=== PATIENT | female | born 2000 | race Two or more races ===

== ENCOUNTER 2019-05-07 19:44 | Emergency (ER) | payer MEDICAID ==
[~2019-05-07] VITALS: Ht 157.5 cm; Wt 73.9 kg
--- NOTE | 2019-05-07 21:55 | NUR ---
urine sample sent. erp at pt's bedside for eval
[2019-05-07] MEDS ORDERED: ONDANSETRON ODT 4 MG PO ONE (22:00)
[2019-05-07] MEDS ORDERED: ACETAMINOPHEN 325 MG TABLET PO ONE (22:00)
[2019-05-07] MEDS ORDERED: ACETAMINOPHEN 325 MG TABLET ONE (22:04)
[2019-05-07] MEDS ORDERED: ONDANSETRON ODT 4 MG ONE (22:04)
--- NOTE | 2019-05-07 22:09 | NUR ---
PT MEDICATED PER MAR. PT TO XRAY
[2019-05-07 22:23] LABS: RAPID INFLUENZA A Negative (Negative); RAPID INFLUENZA B Negative (Negative)
[2019-05-07 22:49] VITALS: BP 109/64
--- NOTE | 2019-05-07 22:50 | NUR ---
PT RESTING ON [place], STATED " MY HEADACHE FEELS BETTER", MONITORS IN PLACE, CALL LIGHT WITHIN REACH, DENIES NEEDS. CHART UP FOR RECHECK
--- NOTE | 2019-05-07 23:22 | NUR ---
Patient/Caregiver given discharge instructions and they have confirmed that they understand the instructions. Patient ambulatory with steady gait.
== END 2019-05-07 23:23 | disposition home or self-care (01) ==
LOC: ED 23:17
DX: O26.891 Other specified pregnancy related conditions, first trimester (principal); J02.8 Acute pharyngitis due to other specified organisms; B97.89 Other viral agents as the cause of diseases classified elsewhere; Z3A.09 9 weeks gestation of pregnancy
CPT/HCPCS: 71045; 87400; 99284; Q0162